=== PATIENT | female | born 1960 | race Caucasian/White ===

== ENCOUNTER 2018-05-11 11:51 | Inpatient (IN) | payer MEDICARE, OTHER ==
--- NOTE | 2018-05-11 12:18 | ED ---
General Adult HPI - General Chief complaint: Recheck/Abnormal Lab/Rx Stated complaint: heart concerns Time Seen by Provider: 05/11/18 11:51 Source: patient, EMS, RN notes reviewed Mode of arrival: EMS Limitations: no limitations - History of Present Illness Initial comments: This is a 57-year-old female presents emergency Department from [facility]. Patient was in dialysis and started having some slurred speech earlier in the day she was brought into the emergency department evaluated her slurred speech resolved CAT scan was done was negative in the process the patient's heart rate was noted to be irregular. Patient was in A. fib with rapid ventricular response he was placed on Cardizem and heparin at this time. Patient's troponin was elevated at over 4 so they decided to send the patient to our emergency department. Patient states she's felt fine had no chest pain no difficulty breathing and no shortness of breath. She denies any previous history of A. fib and currently she states she is asymptomatic. Neurologically family states she is acting at her baseline. - Related Data Home Medications Medication Instructions Recorded Confirmed Auryxia 210mg 2 tsp PO AC-TID 05/11/18 05/11/18 B Complex W-C No.20/Folic Acid 1 mg PO DAILY 05/11/18 05/11/18 [Renal Caps Softgel] Metoprolol Succinate (ER) [Toprol 100 mg PO BID 05/11/18 05/11/18 Xl] Allergies Allergy/AdvReac Type Severity Reaction Status Date / Time vancomycin Allergy Severe Itching Verified 05/11/18 12:30 Review of Systems ROS Statement: Those systems with pertinent positive or pertinent negative responses have been documented in the HPI. ROS Other: All systems not noted in ROS Statement are negative. Past Medical History Past Medical History: Renal Disease Additional Past Medical History / Comment(s): dialysis (Wed, Wed, Wednesday.) History of Any Multi-Drug Resistant Organisms: None Reported Past Surgical History: Cholecystectomy Additional Past Surgical History / Comment(s): fistula for hemodiaysis (RT and LT arm; currently no RT arm use.) Past Anesthesia/Blood Transfusion Reactions: No Reported Reaction Past Psychological History: No Psychological Hx Reported Smoking Status: Never smoker Past Alcohol Use History: None Reported Past Drug Use History: None Reported - Past Family History Father Family Medical History: Renal Disease General Exam - General Exam Comments Initial Comments: GENERAL: Patient is well-developed and well-nourished. Patient is nontoxic and well- hydrated and is in no acute distress. ENT: Neck is soft and supple. No significant lymphadenopathy is noted. Oropharynx is clear. Moist mucous membranes. Neck has full range of motion without eliciting any pain. EYES: The sclera were anicteric and conjunctiva were pink and moist. Extraocular movements were intact and pupils were equal round and reactive to light. Eyelids were unremarkable. PULMONARY: Unlabored respirations. Good breath sounds bilaterally. No audible rales rhonchi or wheezing was noted. CARDIOVASCULAR: Patient's heart rate is about 115 bpm and irregular. ABDOMEN: Soft and nontender with normal bowel sounds. SKIN: Skin is clear with no lesions or rashes and otherwise unremarkable. NEUROLOGIC: Patient is alert and oriented x3. Cranial nerves II through XII are grossly intact. Motor and sensory are also intact. Normal speech, volume and content. Symmetrical smile. MUSCULOSKELETAL: Normal extremities with adequate strength and full range of motion. No lower extremity swelling or edema. No calf tenderness. LYMPHATICS: No significant lymphadenopathy is noted PSYCHIATRIC: Normal psychiatric evaluation. Limitations: no limitations Course Vital Signs 05/11/18 05/11/18 05/11/18 11:57 12:05 12:49 Temperature 99.9 F H Pulse Rate 111 H 104 H Pulse Rate [ 103 H Pricing Lead ] Respiratory 18 18 Rate Blood Pressure 158/104 126/77 O2 Sat by Pulse 98 96 Oximetry 05/11/18 13:19 Temperature Pulse Rate 100 Pulse Rate [ Pricing Lead ] Respiratory 18 Rate Blood Pressure 123/68 O2 Sat by Pulse 96 Oximetry Medical Decision Making - Medical Decision Making EKG shows A. fib with rapid ventricular response at 109 bpm QRS is 100 QT interval 32 QTC is 514. Patient's EKG shows no ST segment elevation or depression or T wave abnormalities are noted. Troponin was essentially unchanged from the previous troponin done at [facility] I spoke with Dr. SHORT agreed to admit the patient admitted the patient I wrote admitting orders after I spoke with Dr. peck takes agreed to admit the patient I repeated. Enzymes I consult to cardiology patient on a Cardizem drip and heparin. - Lab Data Lab Results 05/11/18 Range/Units 12:10 Troponin I 4.230 H* (0.000-0.034) ng/mL Critical Care Time Critical Care Time: Yes Total Critical Care Time: 35 Disposition Clinical Impression: New onset atrial fibrillation, Elevated troponin, Chronic renal failure Disposition: ADMITTED IP TO THIS HOSP Referrals: None,Stated [Primary Care Provider] - 1-2 days Time of Disposition: 13:35
[2018-05-11] MEDS ORDERED: HEPARIN SOD,PORK IN 0.45% NACL 25,000 UNIT in 0.45% NACL 1 500ML.BAG IV SCH (12:30)
[2018-05-11] MEDS: DILTIAZEM 50 MG in SODIUM CHLORIDE 0.9% 40 ML IV SCH ×3 (12:47→21:14)
[2018-05-11] MEDS ORDERED: NITROGLYCERIN SL TABS 0.4 MG TAB SUBLINGUAL PRN (13:35)
--- NOTE | 2018-05-11 14:43 | P.HPIM ---
History of Present Illness 57-year-old wasn't female with history of polycystic kidney disease and still disease hemodialysis Wednesday and Wednesday schedule was sent in from hemodialysis center at after they found her to be bit confused with possible slurred speech without any focal weakness, at the facility patient was found to be negative relation patient denied any chest pain denied any short of breath lightheadedness. Patient doesn't have any neurological symptoms at this point of time patient does not have any weakness does not have any tingling numbness doesn't have any slurred speech patient is alert oriented 3 mental status at her baseline. Patient is also found to have elevated troponin up to 4 with the T-wave inversions in anterolateral leads because of which patient was transferred from [facility] to [facility]. Patient is being admitted now patient was started on IV heparin patient heart rate is elevated I do not have all the information about her medical issues at this time. Patient facet of troponin was ordered here which was elevated to 4.23. Patient takes metoprolol at home which will be reordered and first dose will be given now for her heart rate. Cardiology will be consulted patient was given aspirin here. Patient although denied any chest pain Review of Systems REVIEW OF SYSTEMS: CONSTITUTIONAL: No fever, no malaise, no fatigue. HEENT: No recent visual problems or hearing problems. Denied any sore throat. CARDIOVASCULAR: No chest pain, orthopnea, PND, no palpitations, no syncope. PULMONARY: No shortness of breath, no cough, no hemoptysis. GASTROINTESTINAL: No diarrhea, no nausea, no vomiting, no abdominal pain. Normoactive bowel sounds. NEUROLOGICAL: No headaches, no weakness, no numbness. HEMATOLOGICAL: Denies any bleeding or petechiae. GENITOURINARY: Denies any burning micturition, frequency, or urgency. MUSCULOSKELETAL/RHEUMATOLOGICAL: Denies any joint pain, swelling, or any muscle pain. ENDOCRINE: Denies any polyuria or polydipsia. The rest of the 14-point review of systems is negative. Past Medical History Past Medical History: Renal Disease Additional Past Medical History / Comment(s): dialysis (Wed, Wed, Wednesday.) History of Any Multi-Drug Resistant Organisms: None Reported Past Surgical History: Cholecystectomy Additional Past Surgical History / Comment(s): fistula for hemodiaysis (RT and LT arm; currently no RT arm use.) Past Anesthesia/Blood Transfusion Reactions: No Reported Reaction Past Psychological History: No Psychological Hx Reported Smoking Status: Never smoker Past Alcohol Use History: None Reported Past Drug Use History: None Reported - Past Family History Father Family Medical History: Renal Disease Medications and Allergies Home Medications Medication Instructions Recorded Confirmed Type Auryxia 210mg 2 tsp PO AC-TID 05/11/18 05/11/18 History B Complex W-C No.20/Folic Acid 1 mg PO DAILY 05/11/18 05/11/18 History [Renal Caps Softgel] Metoprolol Succinate (ER) [Toprol 100 mg PO BID 05/11/18 05/11/18 History Xl] Allergies Allergy/AdvReac Type Severity Reaction Status Date / Time vancomycin Allergy Severe Itching Verified 05/11/18 12:30 Physical Exam Vitals: Vital Signs Temp Pulse Pulse Resp BP Pulse Ox 05/11/18 14:21 110 H 18 120/78 98 05/11/18 13:19 100 18 123/68 96 05/11/18 12:49 104 H 18 126/77 96 05/11/18 12:05 103 H 05/11/18 11:57 99.9 F H 111 H 18 158/104 98 Intake and Output 05/10/18 05/11/18 05/11/18 22:59 06:59 14:59 Other: Weight 73 kg PHYSICAL EXAMINATION: GENERAL: The patient is alert and oriented x3, not in any acute distress. Well developed, well nourished. HEENT: Pupils are round and equally reacting to light. EOMI. No scleral icterus. No conjunctival pallor. Normocephalic, atraumatic. No pharyngeal erythema. No thyromegaly. CARDIOVASCULAR: S1 and S2 present. No murmurs, rubs, or gallops. PULMONARY: Chest is clear to auscultation, no wheezing or crackles. ABDOMEN: Soft, nontender, nondistended, normoactive bowel sounds. No palpable organomegaly. MUSCULOSKELETAL: No joint swelling or deformity. EXTREMITIES: No cyanosis, clubbing, or pedal edema. NEUROLOGICAL: Gross neurological examination did not reveal any focal deficits. SKIN: No rashes. Results Labs: Abnormal Lab Results - Last 24 Hours (Table) 05/11/18 Range/Units 12:10 Troponin I 4.230 H* (0.000-0.034) ng/mL Assessment and Plan Plan: -Non-ST elevation myocardial infarction: Patient is elevated troponins cardiology will be consulted patient is on IV heparin metoprolol will be started back. -Atrial fibrillation new onset with rapid ventricular rate If patient heart rate is not controlled with metoprolol and patient can be started on Cardizem there is no evidence of heart failure at this time. -Episode of confusion possibly of slurred speech may or may not have had TIA, confusion can be from microinfarction atrial fibrillation. -End-stage renal disease hemodialysis dependent history of polycystic kidney disease, nephrology will be consulted if patient goes for cardiac catheterization patient will need an additional sister of hemodialysis.
[2018-05-11] MEDS ORDERED: PANTOPRAZOLE 40 MG/10 ML VIAL IVP SCH (17:30)
[2018-05-11 17:45] LABS: Basophils % (A) 0 %; Eosinophils % (A) 1 %; HCT 49.6 % (34.0-46.0); HGB 15.9 gm/dL (11.4-16.0); Lymphocytes # (A) 0.3 k/uL (1.0-4.8); Lymphocytes % (A) 8 %; MCH 29.3 pg (25.0-35.0); MCV 91.5 fL (80.0-100.0); Mean Platelet Volume 9.7; Monocytes # (A) 0.3 k/uL (0-1.0); Monocytes % (A) 6 %; Neutrophils # (A) 3.3 k/uL (1.3-7.7); Neutrophils % (A) 83 %; RBC 5.42 m/uL (3.80-5.40); RDW 15.7 % (11.5-15.5)
[2018-05-11 18:08] LABS: Platelet Count 79 k/uL (150-450)
[2018-05-11 18:28] LABS: Glucose,Whole Blood 170 mg/dL (75-99)
[2018-05-11 18:40] LABS: Calcium 9.1 mg/dL (8.4-10.2); Magnesium 2.2 mg/dL (1.6-2.3); Potassium 3.6 mmol/L (3.5-5.1)
--- NOTE | 2018-05-11 18:47 | CT ---
EXAMINATION: CODE STROKE: CT brain wo contr DATE AND TIME: 05/11/2018 6:31 PM CLINICAL INDICATION: confusion Difficulty with speech after hemodialysis. TECHNIQUE: Standard departmental protocol. 1153 COMPARISON: None. FINDINGS: The calvarium is intact. There is no intracranial hemorrhage. There is no intracranial mass or mass effect. No new intra-axial or extra-axial attenuation defect. Atherosclerotic calcifications are noted within the posterior and anterior circulation. The paranasal sinuses, middle ear cavities, and mastoid sinus air cells are clear. The orbits are unremarkable. IMPRESSION: NO ACUTE PROCESS.
--- NOTE | 2018-05-11 19:48 | CT ---
EXAMINATION TYPE: CODE STROKE: CTA head neck DATE OF EXAM: 05/11/2018 HISTORY: Altered mental status. COMPARISON: Head CT without contrast 05/11/2018 at 6:[address] DLP: 313 mGycm. Automated Exposure Control for Dose Reduction was Utilized. TECHNIQUE: CTA scan of the neck is performed with IV Contrast, patient injected with 65ml mL of Isov ue 370, axial images are obtained, coronal and sagittal reformatted images are reviewed. Three-D sae nstructed images are created on an independent workstation and reviewed. FINDINGS: Aortic arch: The origins of the great vessels at the aortic arch are patent. Carotid arterial system: The CCA and ICA and ECA are all patent. There is prominent ICA tortuosity bi laterally, with dominant bilateral proximal ICA calcified plaque is greater on the left. These do not appear to represent flow-limiting stenoses at this time. The ICAs are patent throughout their cervic al extent bilaterally. The distal ICA bilaterally, the bilateral MCA and bilateral CATA are all widely patent. No filling defects or focal aneurysm or focal stricture. Vertebral arterial system: The bilateral vertebral arteries are patent throughout their cervical cour se. Intracranially, the vertebrobasilar system demonstrates dolichoectasia and the left vertebral art mckay shows calcified plaques which are borderline for flow-limiting stenosis. No filling defects or fo ryan aneurysm. Other: There is a 2.3 cm mean diameter paratracheal soft tissue nodule immediately posterior and inf erior to the left thyroid lobe. IMPRESSION: 1. BILATERAL PROXIMAL ICA STENOSES, GREATER ON THE LEFT, WHICH DO NOT APPEAR FLOW-LIMITING. 2. LEFT VERTEBRAL ARTERIAL CALCIFIED PLAQUE APPEARS BORDERLINE FOR FLOW-LIMITATION. 3. Incidental mass: 2.3 CM MEAN DIAMETER PARATRACHEAL SOFT TISSUE SMOOTHLY MARGINATED MASS LOCATED IM MEDIATELY POSTERIOR AND INFERIOR TO THE LEFT THYROID LOBE.
[2018-05-11 20:01] LABS: Creatine Kinase MB 4.4 ng/mL (0.0-2.4); Troponin I 4.76 ng/mL (0.000-0.034)
[2018-05-11 20:11] LABS: Glucose,Whole Blood 132 mg/dL (75-99)
[2018-05-11 20:31] VITALS: TEMP 98.2
[2018-05-11] MEDS ORDERED: METOPROLOL TARTRATE 50 MG TAB PO SCH ×2 (21:00)
[2018-05-11 22:36] VITALS: BP 142/76; PULSE 75; RESP 66
[2018-05-12] MEDS ORDERED: ASPIRIN 325 MG TAB PO SCH (09:00)
--- NOTE | 2018-05-12 15:03 | P.DS ---
Providers Date of admission: 05/11/18 13:35 Expected date of discharge: 05/11/18 Attending physician: Panhcito Whitaker MD Consults: 05/11/18 13:35 Consult Physician Urgent Consulting Provider: [facility] Consult Reason/Comments: New-onset A. fib, elevated troponin Do you want consulting provider notified?: Yes 05/11/18 13:37 Consult Physician Urgent Consulting Provider: Stephanie Lozada Consult Reason/Comments: Chronic renal failure Do you want consulting provider notified?: Yes 05/11/18 19:04 Consult Physician Stat Consulting Provider: Seema La Consult Reason/Comments: code stroke Do you want consulting provider notified?: Yes Primary care physician: Stated None Hospital Course: After I evaluated the patient patient had an episode of strokelike symptoms including aphasia and confusion with NIH score of 5 and telemedicine [place] assisted neurology evaluated the patient CT angios the head was done which did not show some 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 Patient was subsequently transferred to [facility] for further evaluation and higher level of care. Plan - Discharge Summary Discharge Rx Participant: Yes New Discharge Prescriptions: No Action Metoprolol Succinate (ER) [Toprol Xl] 100 mg PO BID Auryxia 210mg 2 tsp PO AC-TID B Complex W-C No.20/Folic Acid [Renal Caps Softgel] 1 mg PO DAILY Discharge Medication List Auryxia 210mg 2 tsp PO AC-TID 05/11/18 [History] B Complex W-C No.20/Folic Acid [Renal Caps Softgel] 1 mg PO DAILY 05/11/18 [ History] Metoprolol Succinate (ER) [Toprol Xl] 100 mg PO BID 05/11/18 [History] Follow up Appointment(s)/Referral(s): None,Stated [Primary Care Provider] - 1-2 days Discharge Disposition: OTHER INSTITUTION NOT DEFINED
--- NOTE | 2018-05-15 15:16 | CDI ---
Last Revision, August 2017 Documentation Clarification Form Date: 05/15/18 From: Julia Renteria Phone: If you have a question regarding this query, please contact Lary Li at [phone] between 8am and 5pm. Admit Date: 05/11/2018 1:35:00 PM Patient Name: Eva White Visit Number: [id number] Discharge Date: 05/11/18 ATTENTION: The Clinical Documentation Specialists (CDI) and [facility] Coding Staff appreciate your assistance in clarifying documentation. Please respond to the clarification below the line at the bottom and electronically sign. The CDI & [facility] Coding staff will review the response and follow-up if needed. Please note: Queries are made part of the Legal Health Record. If you have any questions, please contact the author of this message via ITS. Ely Swenson MD New onset atrial fibrillation is documented in the H&P, discharge summary and ED note. History/Risk Factors: Patient has a history of end stage renal disease and is on hemodialysis. Clinical Indicators: Irregular heart rate. EKG/telemetry: A.fib with rapid ventricular response at 109 bpm QRS is 100 QT interval 32 QTC is 514. Treatment: Diltiazem IV, metoprolol PO and Heparin IV In your professional opinion, can you please clarify the type of atrial fibrillation, if known? Chronic/Permanent Paroxysmal Persistent Other, please specify Unable to determine Paroxysmal MTDD
== END 2018-05-11 23:08 | disposition short-term general hospital (02) | DRG 280 ==
LOC: EC 11:51 → 6SEL 13:35 → 6ICU 19:45
PROVIDERS: ADMIT Internal Medicine; ATTEND Internal Medicine
DX: I21.4 Non-ST elevation (NSTEMI) myocardial infarction (principal); N18.6 End stage renal disease; G45.9 Transient cerebral ischemic attack, unspecified; R47.01 Aphasia; Q61.3 Polycystic kidney, unspecified; I65.23 Occlusion and stenosis of bilateral carotid arteries; Z99.2 Dependence on renal dialysis; I48.0 Paroxysmal atrial fibrillation; R41.0 Disorientation, unspecified; R29.705 NIHSS score 5; Z79.899 Other long term (current) drug therapy; Z88.1 Allergy status to other antibiotic agents; Z90.49 Acquired absence of other specified parts of digestive tract; Z84.1 Family history of disorders of kidney and ureter
CPT/HCPCS: 36415; 70450; 70496; 70498; 80048; 82550; 82553; 83735; 84484; 85025; 85730; 93005; 96365; 96366; 96368; 96375; 99291